=== PATIENT | male | born 1950 | race Caucasian/White ===

== ENCOUNTER → 2018-08-06 | Day surgery (SDC) | payer MEDICARE, OTHER ==
[~2018-08-06] MED LIST: ASPIR 8181 MG PO; ATENOLOL50 MG PO; CIPROFLOXACIN 400 MG/D5W 200ML 200 ML IV ONE; DEXAMETHASONE SOD PHOS INJ 4 MG/ML VIAL ONE; EPHEDRINE SULFATE INJ 50 MG/10 ML SYR ONE; FENTANYL CITRATE/PF 100MCG/2 ML INJ ONE; FLOMAX0.4 MG PO; GLYCOPYRROLATE INJ 1MG/ 5 ML SYR ONE; IOPAMIDOL 610MG/1ML 300 MG/ML VIAL IV ONE; KETOROLAC; KETOROLAC TROME10 MG PO; LEVOTHYROXINE50 MCG PO; LEXAPRO10 MG PO; LIDOCAINE HCL 2% LOCAL INJ 5 ML SDV VIAL INJ ONE; MACROBID 100 M100 MG PO; MIDAZOLAM HCL 2 MG/2 ML VIAL ONE; NITROFURANTOIN100 MG PO; ONDANSETRON HCL INJ 2MG/ML 2ML 2 MG/ML VIAL ONE; PROPOFOL IV EMULSION 10 MG/ML 20 ML VIAL ONE; SEVOFLURANE INHAL SOLN 250 ML PEN BTL ONE
[2018-08-06 10:03] LABS: BASOPHILS # (AUTO) 0.1 (0.0-0.1); BASOPHILS % 0.9 % (0.0-1.0); EOSINOPHILS # (AUTO) 0.1 (0.0-0.4); EOSINOPHILS % 1.7 % (0.0-6.0); HEMATOCRIT 38.4 % (38.2-49.6); HEMOGLOBIN 12.9 g/dL (14.0-18.0); LYMPHOCYTES # (AUTO) 1.3 (1.0-3.2); LYMPHOCYTES % 18.3 % (18.0-39.1); MEAN CORPUSCULAR HEMOGLOBIN 29.6 pg (28-32); MEAN CORPUSCULAR HGB CONC 33.6 g/dL (31-35); MEAN CORPUSCULAR VOLUME 88.1 fL (81-99); MONOCYTES # (AUTO) 0.5 (0.2-0.8); MONOCYTES % 7.8 % (4.4-11.3); NEUTROPHILS # (AUTO) 4.8 (2.1-6.9); NEUTROPHILS % 70.3 % (38.7-80.0); PLATELET COUNT 196 x10e3/uL (140-360); RED BLOOD COUNT 4.36 x10e6/uL (4.3-5.7); RED CELL DISTRIBUTION WIDTH 12.7 % (11.7-14.4)
[2018-08-06 10:14] LABS: INR 0.96; PROTHROMBIN TIME 13.3 seconds (11.9-14.5)
[2018-08-06 10:15] LABS: PARTIAL THROMBOPLASTIN TIME 28.7 seconds (23.8-35.5)
[2018-08-06 10:23] LABS: ALBUMIN 3.8 g/dL (3.5-5.0); ALBUMIN/GLOBULIN RATIO 1.1 (0.8-2.0); ANION GAP 13.1 mmol/L (8-16); CREATININE, SERUM 1.76 mg/dL (0.72-1.25); POTASSIUM 4.1 mmol/L (3.5-5.1)
--- NOTE | 2018-08-06 10:27 | Diagnostic Imaging Report ---
EXAMINATION: CHEST 2 VIEWS INDICATION: Pre-op. COMPARISON: None FINDINGS: TUBES and LINES: None. LUNGS: Lungs are well inflated. No evidence of pneumonia or pulmonary edema. PLEURA: No pleural effusion or pneumothorax. There is a 4.2 cm opacity overlying the left upper hemithorax adjacent to the clips which may be pleural-based. HEART AND MEDIASTINUM: The cardiomediastinal silhouette is unremarkable. There are atherosclerotic calcifications in the aortic arch. BONES AND SOFT TISSUES: No acute osseous abnormality. Surgical clips project over the left upper hemithorax. UPPER ABDOMEN: No free air under the diaphragm. IMPRESSION: No acute radiographic abnormality. A 4.2 cm opacity overlying the left upper hemithorax adjacent to surgical clips which may be pleural-based. Suggest correlation with clinical history and comparison to prior imaging. If no prior imaging is available, chest CT is suggested. Signed by: Dr. Paige Sands MD on 08/06/2018 10:24 AM
[2018-08-06 12:55] VITALS: BP 150/87
--- NOTE | 2018-08-06 20:19 | Operative Report ---
DATE OF PROCEDURE: 08/06/2018 SURGEON: Rigo Leal MD PREOPERATIVE DIAGNOSES: Right ureteral calculus and right hydronephrosis. POSTOPERATIVE DIAGNOSES: Right ureteral calculus and right hydronephrosis. OPERATION PERFORMED: Right ureteroscopy with holmium laser lithotripsy. ANESTHESIA: General. INDICATIONS: This patient is a 67-year-old white male, who on the August 01 had severe right-sided renal colic, went to a local emergency room, and was found to have an 8.8 mm stone in the proximal right ureter causing moderate hydronephrosis. For further details, please refer to the history and physical. The procedure was done in the following fashion. DESCRIPTION OF PROCEDURE: The patient was taken to the operating room, placed under general anesthesia and dressed and draped with Hibiclens in lithotomy position in the usual fashion. A preliminary scan of the abdomen with the C-arm revealed a 9 mm stone adjacent to the transverse process of L3. The 24-[place] Olympus cystoscope was inserted under vision with video camera attachment. No urethral strictures were encountered. The bladder was estimated about 40 g. The bladder was severely trabeculated with some diverticula noted. Clear efflux was seen from both ureteral orifices. No bladder tumors or bladder stones were identified. A 6-[place] open-ended catheter was inserted into the right ureteral orifice and retrograde pyelogram obtained. This confirmed that the 9 mm of calcification was in fact the stone of the urinary tract and as I started flushing contrast in there so that I could visualize the kidney, the stone actually moved from that position back into the kidney. My next step was to pass a SureGlide guidewire through the 6-[place] open-ended catheter. Once that was in good position, I then removed the 6-[place] open-ended catheter and passed a 10-[place] double lumen catheter over the SureGlide guidewire. I then passed an Amplatz Super Stiff as a safety guidewire through the open lumen. This was now left in with two guidewires going up into the kidney. Now that I had 2 guidewires good position on fluoroscopic guidance, I could no longer see the stone as it was in the kidney obscured by contrast media. My next step was to remove the 10-[place] double lumen introducer and I passed the long flexible ureteroscopy sheath over the SureGlide guidewire. Once this was in good position, I removed the inner sheath. I then looked my way up the ureter with the Olympus flexible deflectable ureteroscope. I went past a moderately inflamed area where the stone had previously been by L3, but it did not appear strictured and I looked my way up into the kidney. I began looking all around the kidney to see this. There was a 2 mm stone noted in upper pole calyx that flushed out of my view very rapidly with the irrigation fluid, and I really did not see that little tiny thing since. I then inspected all the calyces carefully using fluoroscopic guidance as well and I found an 8.8 to 9 mm stone now sitting in a right mid pole calyx. At this point in time, I used the Olympus 200 micron fiber for the holmium laser and I was able to put this up near the stone and I used a 1.5 corral 12 Hz for a total of 682 joules to fragment the stone into bits. Most of what was left was dust, but there were two larger fragments remaining. At this point in time, I felt the best thing to do would be to get them out with the stone basket for stone analysis. Therefore, the laser was turned off and I then passed the stone basket and grabbed each of these larger stone fragments individually with the stone basket and removed them. Once these two stone fragments were removed, I could look my way back up into the calyx another time with the flexible ureteroscope, hence these stones were gone. My next step was to remove the ureteroscope and then I removed the flexible ureteroscopy sheath. I then passed the 10-[place] double lumen introducer over the Amplatz Super Stiff guidewire and obtained a retrograde pyelogram through the free lumen. There was no evidence of stone at this point in time and there was no evidence of extravasation, so I felt it was safe to leave the patient without a stent at this point in time. The Amplatz Super Stiff was removed. The patient tolerated the procedure well and left the operating room in good condition. My plan at this time is to send the patient home on Toradol 10 mg one p.o. q.6 hours p.r.n. pain and to send him home on Macrobid 100 mg p.o. twice daily for 10 days and will have a return appointment to see me again in 2 weeks for a followup flatplate of the abdomen. Rigo Leal MD SRA/YUKO /[id number]
== END | disposition home or self-care (01) ==
LOC: OR 09:00
PROVIDERS: ATTEND Urology
DX: N13.2 Hydronephrosis with renal and ureteral calculous obstruction (principal); N40.0 Benign prostatic hyperplasia without lower urinary tract symptoms; I10 Essential (primary) hypertension; R00.1 Bradycardia, unspecified; E03.9 Hypothyroidism, unspecified; K64.4 Residual hemorrhoidal skin tags; K80.80 Other cholelithiasis without obstruction; M51.37 Other intervertebral disc degeneration, lumbosacral region; R19.5 Other fecal abnormalities; H93.13 Tinnitus, bilateral; F06.4 Anxiety disorder due to known physiological condition; Z88.8 Allergy status to other drugs, medicaments and biological substances; Z79.82 Long term (current) use of aspirin; Z87.891 Personal history of nicotine dependence
CPT/HCPCS: 36415; 52353; 71046; 74420; 80053; 85025; 85610; 85730; 88300; 93005; J0744; J1100; J2001; J2250; J2405; J2704; J3490; Q9967